=== PATIENT | male | born 1970 | race Caucasian/White ===

== ENCOUNTER 2019-12-23 00:53 | Observation (INO) ==
[2019-12-23] MEDS ORDERED: Ondansetron 4 MG/2 ML VIAL IVP PRN (02:55)
[2019-12-23] MEDS ORDERED: Naloxone 0.4 MG/ML INJ IVP PRN (02:55)
[2019-12-23 05:11] LABS: Basophils # 0.1 K/mcL (0.0-0.2); Basophils % 1.4 %; Eosinophils # 0.4 K/mcL (0.0-0.6); Eosinophils % 4.8 %; Hematocrit 32.3 % (37.5-50.1); Hemoglobin 10.2 g/dL (12.9-16.9); Immature Granulocytes % 0.6 % (0-4); Lymphocytes # 2.4 K/mcL (0.6-4.6); Mean Corpuscular HGB Conc 31.6 g/dL (31.6-35.5); Mean Corpuscular Hemoglobin 28.9 pg (28.0-33.3); Mean Corpuscular Volume 91.5 fL (83.0-100.0); Mean Platelet Volume 12.4 fL (9.4-12.4); Monocytes # 0.9 K/mcL (0.0-1.3); Monocytes % 10.7 %; Neutrophils # 4.4 K/mcL (1.6-8.9); Platelet Count 148 K/mcL (140-400); Red Blood Count 3.53 M/mcL (4.19-5.50); Red Cell Distribution Width 14.5 % (11.5-14.5); Segmented Neutrophils % 53.5 %; White Blood Count 8.1 K/mcL (4.3-11.1)
[2019-12-23 05:14] LABS: Prothrombin Time 10.8 Seconds (9.4-12.1)
[2019-12-23 07:15] LABS: Calcium 8.3 mg/dL (8.6-10.3); Potassium 4.4 mEq/L (3.5-5.1)
[2019-12-23 07:41] LABS: Hepatitis B Surface Antigen Nonreactive (Nonreactive)
[2019-12-23] MEDS ORDERED: 0.9 % Sodium Chloride 250 ML IVC PRN (07:56)
[2019-12-23] MEDS ORDERED: 0.9 % Sodium Chloride 1,000 ML PRIME SCH (08:00)
[2019-12-23] MEDS ORDERED: lisinopriL 20 MG TABLET PO SCH (09:00)
[2019-12-23] MEDS ORDERED: Gabapentin 100 MG CAPSULE PO SCH (09:00)
[2019-12-23] MEDS ORDERED: Lidocaine/EPI 1:100k 1% 50 ML VIAL ONE (10:59)
[2019-12-23] MEDS ORDERED: Heparin 1,000 UNITS/500 mL 500 ML ONE (10:59)
[2019-12-23] MEDS ORDERED: 0.9 % Sodium Chloride 500 ML ONE (11:32)
[2019-12-23] MEDS ORDERED: *HR* FentaNYL (PF) 100 MCG/2 ML VIAL ONE (11:54)
[2019-12-23] MEDS ORDERED: CeFAZolin 2,000 MG/50 ML BAG IVPB ONE (11:59)
[2019-12-23] MEDS ORDERED: *HR* FentaNYL (PF) 100 MCG/2 ML VIAL IVP ONE (11:59)
[2019-12-23] MEDS ORDERED: *HR* Heparin 5,000 UNIT/ML VIAL ONE (12:07)
[2019-12-23] MEDS ORDERED: *HR* Heparin 10,000 UNIT/10 ML VIAL IV PRN (14:33)
[2019-12-23 16:37] VITALS: BP 110/66
== END 2019-12-23 17:47 | disposition home or self-care (01) ==
LOC: 2ANU → SUATTDRO 02:29
PROVIDERS: ADMIT Internal Medicine; ATTEND Internal Medicine
PROC: IRPERMA (2019-12-23 12:00)